=== PATIENT | male | born 1970 | race Caucasian/White ===

== ENCOUNTER → 2018-07-07 | Day surgery (SDC) | payer BC ==
[~2018-07-07] MED LIST: FENTANYL CITRATE/PF 100MCG/2 ML INJ ONE; GEMFIBROZIL600 MG PO; HYDROCHLOROTH12.5 M1 PO; HYOSCYAMINE SULFATE 0.5 MG/ML INJ ONE; INDERAL LA120 MG PO; KETAMINE HCL INJ 50 MG/ML 10 ML VIAL ONE; MIDAZOLAM HCL 2 MG/2 ML VIAL ONE; PROPOFOL IV EMULSION 10 MG/ML 50 ML VIAL ONE; PROPRANOLOL HC120 MG PO
--- OUTSIDE RECORDS SUMMARY | 2018-07-07 07:33 | XMS REPORT ---
Author Author [facility] Address Unknown Phone Unavailable Care Team Providers Care Adult Basic Education Teacher Name Role Phone Unavailable Unavailable Payers Payer Name Policy Type Policy Number Effective Date Expiration Date Problems This patient has no known problems. Allergies, Adverse Reactions, Alerts Allergy Name Allergy Type Status Severity Reaction(s) Onset Date Inactive Date Treating Clinician Comments promethazine HCl DA Active MT 2018-06-15 00:00:00 promethazine HCl DA Active MT 2013-05-09 00:00:00 Medications This patient has no known medications. Results Test Description Test Time Test Comments Text Results Atomic Results Result Comments - XR MYELOGRAM C-SPINE 2018-06-16 10:37:00 Patient Name: INGA PATINO Unit No: [id number] EXAMS: CPT CODE: [id number] XR MYELOGRAM C-SPINE 66783 CERVICAL MYELOGRAM DIAGNOSIS: No evidence for disc bulge or herniation. COMMENT: COMPARISON: No prior exams available. After informed consent was obtained the cervical subarachnoid space was evaluated with 10 mL of Isovue-300 via an oblique L2-3 approach with a 26-gauge spinal needle. This was an atraumatic tap and no immediate complications were encountered. 1.1 minutes of fluoroscopy time was utilized. No ventral or root sleeve defects were seen. at 1037 Reported and signed by: Gene Brar MD CC: Technologist: RT ROXY(R) Transcribed D/ (1037) [email or web address] [facility] NAME: INGA PATINO [address] [facility] PHYS: WIMDA.Simon Ritchie : 1970 AGE: 48 SEX: M [place], [place] [address] LOC: MARY PHONE #: [phone] EXAM DATE: 06/15/2018 STATUS: [facility] FAX #: [phone] RAD #: D/C DT PAGE 1 Signed Report Patient Name: INGA PATNIO Unit No: [id number] EXAMS: CPT CODE: [id number] XR MYELOGRAM C- SPINE 54455 <Continued> Orig Print D/T: S: 06/16/2018 (1040) [facility] NAME: INGA PATINO [address] [facility] PHYS: WIMDA.Simon Ritchie : 1970 AGE: 48 SEX: M [place] [address] LOC: MARY PHONE #: [phone] EXAM DATE: 06/15/2018 STATUS: [facility] FAX #: [phone] RAD #: D/C DT PAGE 2 Signed Report - CT C-SPINE W/CONTRAST 2018-06-15 14:44:00 Patient Name: INGA PATINO Unit No: [id number] EXAMS: CPT CODE: [id number] CT C-SPINE W/CONTRAST 57190 CLINICAL HISTORY: POST MYELOGRAM CERVICAL TECHNIQUE: After informed consent was obtained, the cervical spine is evaluated using 10 mL of Isovue-350 which is instilled using a 26-gauge spinal needle inserted into the thecal sac. Multiple post- injection radiographs were obtained in various obliquities. The patient tolerated the procedure well. 2 mm axial slices are obtained of the cervical spine post myelography with intrathecal contrast and reconstruction. COMPARISON: Prior MRI is unavailable for mark risviviana at time of dictation. FINDINGS: Postoperative changes of C5-C7 ACDF demonstrated without evidence of hardware complication. Interbody grafts are healed. There is additional interbody fusion at C4-C5 with removal of prior C4 screws. Reversal of cervical lordosis is centered at C3. No acute fracture. Visualized prevertebral and paraspinal soft tissues are unremarkable. C2/3: No significant disc bulge or herniation. Mild bilateral facet hypertrophy results in mild foraminal stenosis bilaterally. Mild central canal stenosis. C3/4: Left asymmetric disc bulge osteophyte complex is noted as well as left greater than right uncovertebral hypertrophy. There is moderate to severe left, mild right foraminal stenosis as well as the moderate to severe central canal stenosis. Slight flattening of the ventral spinal cord is noted. C4/5: Discectomy and interbody graft which is healed. Right greater than left uncovertebral hypertrophy contributes to mild, right greater than left, foraminal stenosis. No significant central canal stenosis. C5/6: Discectomy and healed interbody graft. Mild left foraminal stenosis is present. No significant right foraminal or central canal stenosis. C6/7: Discectomy and healed interbody graft. Uncovertebral hypertrophy continues to moderate right foraminal stenosis. No significant left foraminal or central canal stenosis. C7/T1: No significant disc bulge or herniation. Bilateral facet hypertrophy is greater on the left. Mild left foraminal stenosis. No significant right foraminal or central canal stenosis. IMPRESSION: Postoperative cervical spine with spondylosis greatest at C3-C4, where there is moderate to severe central canal stenosis. [facility] NAME: INGA PATINO [address] [facility] PHYS: WIMDA. - Simon Aguilar : 1970 AGE: 48 SEX: M [place], [place] [address] LOC: MARY PHONE #: [phone] EXAM DATE: 06/15/2018 STATUS: [facility] [place] FAX #: [phone] RAD #: D/C DT PAGE 1 Signed Report (CONTINUED) Patient Name: INGA PATINO Unit No: [id number] EXAMS: CPT CODE: [id number] CT C-SPINE W/CONTRAST 34664 <Continued> at 1444 Reported and signed by: Marco A Lewis M.D. CC: Technologist: RT Cruz(R) CTDI: DLP: Trnscrpt: 06/15/2018 (8696) Phyllis [facility] NAME: INGA PATINO [address] [facility] PHYS: [email or web address] - Simon Aguilar : 1970 AGE: 48 SEX: M [place], [place] [address] LOC: MARY PHONE #: [phone] EXAM DATE: 06/15/2018 STATUS: [facility] [place] FAX #: [phone] RAD #: D/C DT PAGE 2 Signed Report Patient Name: INGA PATINO Unit No: [id number] EXAMS: CPT CODE: [id number] CT C-SPINE W/CONTRAST 05647 <Continued> Orig Print D/T: S: 06/15/2018 (1448) [facility] NAME: INGA PATINO [address] [facility] PHYS: WIMDA.Rahul - Simon Aguilar : 1970 AGE: 48 SEX: M [place] [id number] LOC: MARY PHONE #: [phone] EXAM DATE: 06/15/2018 STATUS: [facility] [place] FAX #: [phone] RAD #: D/C DT PAGE 3 Signed Report
[2018-07-07 10:36] LABS: WBC,FECAL (FECAL LACTOFERRIN) NEGATIVE (NEGATIVE)
[2018-07-07 11:30] VITALS: BP 141/91
[2018-07-07 15:02] LABS: C DIFFICILE TOXIN A&B AMP PROB NEGATIVE (NEGATIVE)
--- NOTE | 2018-07-07 19:09 | Operative Report ---
DATE OF PROCEDURE: 07/07/2018 SURGEON: Jaime Sullivan MD PROCEDURES: EGD with biopsies and colonoscopy with polypectomy and biopsies. INDICATIONS FOR EGD: Dyspepsia. INDICATIONS FOR COLONOSCOPY: Chronic diarrhea. MEDICATIONS: The patient was under MAC. Please see anesthesiologist's note. DESCRIPTION OF PROCEDURE: With the patient in left lateral decubitus position, a flexible fiberoptic Olympus gastroscope was introduced into the esophagus under direct visualization without any difficulty. A single erosion was noted in distal esophagus. The scope was then advanced with ease into the stomach. Mucosa overlying the antrum and the body revealed some patchy erythema and [id number] edema. Biopsies were obtained and sent to stain for H. pylori. The pylorus was of normal contour and shape, was intubated with ease and the scope was advanced all the way to the second portion of the duodenum. Biopsies were obtained from the proximal second portion and duodenal bulb to rule out sprue. The scope was then withdrawn back into the stomach and retroflexed and mucosa overlying the fundus and the cardia appeared to be within normal limits. The scope was then straightened out and was subsequently withdrawn. The patient tolerated the procedure well. IMPRESSION: 1. Erosive esophagitis. 2. Gastritis, biopsied. Biopsies sent to stain for Helicobacter pylori. 3. Rule out sprue. PLAN: Followup pathology. Initiate Protonix 40 mg one p.o. q.a.m. before meals. The patient was then turned around. After adequate lubrication of the anal canal, a flexible fiberoptic Olympus colonoscope was inserted into the rectum with ease and advanced all the way to the cecum. One polyp was hot biopsied from the cecum. Some diverticulosis was noted in the cecum. The ileocecal valve was intubated and the scope was advanced into the terminal ileum. Biopsies were obtained. The scope was then withdrawn back into the colon. The scope was then withdrawn slowly and diverticular disease was noted in the ascending colon and the proximal transverse colon. Patchy mild inflammatory changes were noted in the transverse, descending, sigmoid, and rectum. Random biopsies were obtained. One polyp was snared from the sigmoid colon. One polyp was hot biopsied from the rectum. The scope was then retroflexed into the distal rectum and moderate-sized internal hemorrhoids were noted, none of which was actively bleeding. The scope was then straightened out and was subsequently withdrawn after securing and adequate stool specimen that was sent for the appropriate stool studies. The patient tolerated the procedure well. IMPRESSION: 1. Cecal polyp, hot biopsied. 2. Diverticulosis, right colon. 3. Mild patchy colitis, predominantly left-sided. Random biopsies obtained. 4. Sigmoid colon polyp, snared. 5. Rectal polyp, hot biopsied. 6. Proctitis, mild. 7. Internal hemorrhoids, none actively bleeding. PLAN: Follow up histology. Follow up stool studies. Initiate VSL #3 one p.o. daily and Bentyl 10 mg one p.o. t.i.d. Check IBD panel, sedimentation rate and CRP. The patient might benefit from a followup colonoscopy in 3 years. Jaime Sullivan MD [facility] [place] /[id number] cc: Robb Win DO
== END | disposition home or self-care (01) ==
LOC: OR 07:28
PROVIDERS: ATTEND Internal Medicine Gastroenterology
DX: K29.70 Gastritis, unspecified, without bleeding (principal); D12.5 Benign neoplasm of sigmoid colon; K62.1 Rectal polyp; K51.50 Left sided colitis without complications; K22.10 Ulcer of esophagus without bleeding; K57.30 Diverticulosis of large intestine without perforation or abscess without bleeding; K62.89 Other specified diseases of anus and rectum; K64.8 Other hemorrhoids; R00.1 Bradycardia, unspecified; I10 Essential (primary) hypertension; E78.5 Hyperlipidemia, unspecified; Z88.8 Allergy status to other drugs, medicaments and biological substances; Z01.810 Encounter for preprocedural cardiovascular examination; Z68.32 Body mass index [BMI] 32.0-32.9, adult
CPT/HCPCS: 36415; 43239; 45380; 45384; 45385; 83630; 83993; 85651; 86140; 86256; 86671; 87045; 87177; 87328; 87493; 93005; J1980; J2250; J2704; 45378